=== PATIENT | female | born 1950 | race Caucasian/White ===

== ENCOUNTER → 2016-12-22 | Outpatient (CLI) | payer MEDICARE, OTHER | END | disposition home or self-care (01) | LOC: RAD.S 08:30 | DX: Z12.31 Encounter for screening mammogram for malignant neoplasm of breast (principal); R92.1 Mammographic calcification found on diagnostic imaging of breast ==

== ENCOUNTER 2016-12-31 09:59 | Emergency (ER) | payer MEDICARE, OTHER ==
--- NOTE | 2017-01-03 13:41 | ER ---
ADMIT: 12/31/2016 RM/LOC: ER [facility] MR#: [id number] [address] [id number] RO[facility] BILLINGS[facility] [address] [place] [address] Emergency Room Report SEX: F AGE: 66 : 1950 DATE: 12/31/2016 CHIEF COMPLAINT: Nausea, vomiting, and diarrhea. HISTORY OF PRESENT ILLNESS: A 66-year-old female, who presents with her with acute onset nausea, vomiting, and diarrhea about 4 hours prior to arrival. Still present. Primarily complains of severe nausea and cramping abdominal pain. Has associated vomiting, diarrhea, and loss of appetite. States she went to bed last night uneventfully, awoke this morning with above symptoms. Pain worse with movement, relieved by nothing. She does state she has a son-in-law who had similar symptoms, however, recovered within a day, is currently being treated for upper respiratory infection with cefdinir, took her first dose last night. Denies any fevers or chills. She has had a cholecystectomy. COURSE IN THE EMERGENCY ROOM: The patient was seen and examined. VITAL SIGNS: She is hypothermic. Respiratory rate of 30, heart rate 103. GENERAL: She is in [id number] amount of distress. She is alert, quite anxious. CHEST: Clear. HEART: Tachycardic, but regular. No murmurs, gallops, or rubs. ABDOMEN: Soft. She has generalized lower abdominal pain as well as low back pain. No McBurney point tenderness. SKIN: Warm and dry. EXTREMITIES: Nontender. No pedal edema. NEURO: She is alert. LABORATORY STUDIES: Today show white count 11.5, hemoglobin 14.2, hematocrit 42.1, and platelets 236. Chemistry: Sodium 142, potassium 4.1, CO2 of 24, BUN 14, creatinine 1.1. Lipase 346. Urine, no signs of infection. She does have 90 hyaline casts per high-power field. Did get abdomen and pelvis CT, discussed with Radiology, no acute findings, question possible early enteritis. While in the department today, she get a liter of normal saline, 8 mg Zofran, ADMIT: 12/31/2016 RM/LOC: ER [facility] MR#: [id number] [facility] [address] [place] [id number] ROSEM[facility] BILLINGSLEY [address] [place] [address] Emergency Room Report SEX: F AGE: 66 : 1950 morphine as well as Ativan 0.5 mg IV. She is quite comfortable now, much improved. Ready for discharge. IMPRESSION: Nausea, vomiting, and diarrhea. DISPOSITION: The patient was discharged, script for Zofran 4 mg ODT one tab sublingually every 8 hours as needed for nausea #12. Follow up with her primary if not improving. I did recommend she stop the cefdinir until this clears up. Return with worsening signs or symptoms. Follow up with her primary. Clear liquids, increase fluids. Questions sought and answered to the best of my ability and to the patient's satisfaction. Discharged in stable condition. JUMANA Ruff / Timothy Oro MD / cecill JOB #: [id number] CC: Timothy Oro MD, Attending Physician Alice Sanchez, Family Physician
== END 2016-12-31 12:15 | disposition home or self-care (01) ==
LOC: ER 09:59
DX: R19.7 Diarrhea, unspecified (principal); R11.10 Vomiting, unspecified; Z79.899 Other long term (current) drug therapy